=== PATIENT | female | born 1955 | race Caucasian/White ===

== ENCOUNTER 2024-07-30 20:47 | Inpatient (IN) | payer BC, MEDICARE ==
[~2024-07-30] VITALS: Ht 162.6 cm; Wt 83.6 kg
[2024-07-30 21:34] LABS: BASOPHILS % (AUTO) 0.4 % (0-1); EOSINOPHILS # (AUTO) 0.1 X10'3 (0-0.9); HEMATOCRIT 41.2 % (35.0-45.0); LYMPHOCYTES # (AUTO) 1.4 X10'3 (1.1-4.8); MEAN CORPUSCULAR HEMOGLOBIN 31.8 PG (27.0-31.0); MEAN CORPUSCULAR VOLUME 93.6 FL (78-98); MEAN PLATELET VOLUME 7.5 FL (7.4-10.4); MONOCYTES # (AUTO) 0.7 X10'3 (0-0.9); MONOCYTES % (AUTO) 10.7 % (2-12); NEUTROPHILS % (AUTO) 64.9 % (42-75); PLATELET COUNT 233 X10'3 (140-440); RED CELL DISTRIBUTION WIDTH 14.2 % (11.5-14.5); WHITE BLOOD COUNT 6.2 X10'3 (4.5-11.0)
--- NOTE | 2024-07-30 21:36 | NUR ---
MD GRANADO AT BEDSIDE AT THIS TIME
[2024-07-30 21:41] LABS: BILIRUBIN,URINE NEGATIVE (Neg); CLARITY,URINE CLEAR (Clear); COLOR,URINE YELLOW (Yellow); GLUCOSE, URINE NEGATIVE (Neg); KETONES,URINE NEGATIVE (Neg); LEUKOCYTE ESTERASE ,URINE NEGATIVE (Neg); NITRITES, URINE NEGATIVE (Neg); OCCULT BLOOD,URINE TRACE-INTACT (Neg); PROTEIN,URINE NEGATIVE (Neg); UROBILINOGEN,URINE 0.2 E.U/dL (0.2-1.0)
[2024-07-30 21:43] LABS: UA COLLECTION TYPE CLN CATCH MIDSTREAM
[2024-07-30 21:51] LABS: ALANINE AMINOTRANSFERASE 261 U/L (12-78); ALBUMIN 3.5 G/DL (3.4-5.0); ALKALINE PHOSPHATASE 126 IU/L (46-116); ANION GAP 9 (8-16); ASPARTATE AMINO TRANSFERASE 183 U/L (10-37); BILIRUBIN,TOTAL 0.8 MG/DL (0.1-1.0); BLOOD UREA NITROGEN 22 MG/DL (7-18); CALCIUM 8.7 MG/DL (8.5-10.1); CHLORIDE 108 MMOL/L (99-107); CREATININE 1.05 MG/DL (0.40-0.90); GLUCOSE 105 MG/DL (70-104); LIPASE 32 U/L (16-77); SODIUM 142 MMOL/L (135-145); TOTAL CARBON DIOXIDE 24.9 MMOL/L (24-32); TOTAL PROTEIN 7.1 G/DL (6.4-8.2); eCRCL 46 ML/MIN; eGFR 52 ML/MIN
[2024-07-30 21:52] LABS: BACTERIA,URINE FEW /HPF (Neg); MUCUS STRANDS NONE SEEN /LPF (Neg); SQUAMOUS EPITHELIAL CELL,UR FEW /LPF (FEW); WBC,URINE 0-4 /HPF (0-4)
[2024-07-30 22:02] LABS: APTT 26 SECONDS (22-32); PROTHROMBIN TIME 10.3 SECONDS (9.0-12.0)
[2024-07-30] MEDS ORDERED: magnesium sulf-water 2g/50mL 50 ML IV PRN (23:00)
[2024-07-30] MEDS ORDERED: potassium Cl 20 mEq SR tablet PO PRN ×2 (23:00)
[2024-07-30] MEDS ORDERED: potassium Cl 40MEQ/1/2NS 520ml 520 ML IV PRN (23:00)
[2024-07-30] MEDS ORDERED: magnesium hydroxide 30ml (MOM) UD suspension PO PRN (23:00)
[2024-07-30] MEDS ORDERED: mag hydrox/Alum hydrox/simeth 30ml oral suspension PO PRN (23:00)
[2024-07-30] MEDS ORDERED: magnesium Cl slow-release 64mg tablet PO PRN (23:00)
[2024-07-30] MEDS ORDERED: morphine 2 MG/ML inj. syringe IV PRN ×2 (23:00)
[2024-07-30] MEDS ORDERED: acetaminophen 325mg tablet PO PRN (23:00)
[2024-07-30] MEDS ORDERED: magnesium sulf-water 4G/100mL 100 ML IV PRN (23:00)
[2024-07-30 23:32] LABS: MAGNESIUM 2.1 MG/DL (1.5-2.4)
[2024-07-30] MEDS: normal saline 1000ml 1,000 ML IV SCH (23:38)
[2024-07-30 23:51] LABS: HEMOGLOBIN A1C 5.6 % (4.5-6.2)
[2024-07-31] VITALS (22 sets, daily range): BP systolic 112–175; BP diastolic 58–101; PULSE 45–97; RESP 13–22; TEMP 97.3–98.5; O2SAT 91–99
--- NOTE | 2024-07-31 00:35 | NUR ---
Patient in room ED 13. I have received report from Pina DONAHUE in ER and had the opportunity to ask questions and assume patient care.
--- NOTE | 2024-07-31 00:45 | NUR ---
Received patient on the unit. Assumed care.
[2024-07-31] MEDS ORDERED: CARB15DR RIGHTEYE (01:39)
[2024-07-31] MEDS ORDERED: CARB15DR LEFTEYE (01:40)
[2024-07-31] MEDS ORDERED: SODI650T29 PO (01:45)
--- NOTE | 2024-07-31 01:45 | NUR ---
Patient reports that she takes a medication for BP at home but doesn't remember what it is called. She does know it is 50mg in the morning and 50mg in the evening. Addendum: 07/31/24 at 0243 by Laina Luz RN RN Home medications found in chart and med rec completed.
[2024-07-31] MEDS ORDERED: LOSA-415 PO (02:06)
[2024-07-31] MEDS ORDERED: OMEP20CA16 PO (02:09)
--- NOTE | 2024-07-31 03:40 | NUR ---
pastry wrapper: I have reviewed and agree with all interventions, assessments performed and documented by Laina Casey RN
--- NOTE | 2024-07-31 06:08 | NUR ---
Problems reprioritized. Patient report given, questions answered & plan of care reviewed with Montez IVY.
[2024-07-31 06:11] LABS: BASOPHILS % (AUTO) 0.3 % (0-1); EOSINOPHILS # (AUTO) 0.2 X10'3 (0-0.9); EOSINOPHILS % (AUTO) 3.1 % (0-6); HEMOGLOBIN 12.7 g/dl (12.0-16.0); LYMPHOCYTES # (AUTO) 0.8 X10'3 (1.1-4.8); LYMPHOCYTES % (AUTO) 11.3 % (21-51); MEAN CORPUSCULAR HGB CONC 33.3 g/dL (33.0-36.5); MEAN CORPUSCULAR VOLUME 93.1 FL (78-98); MEAN PLATELET VOLUME 7.5 FL (7.4-10.4); MONOCYTES # (AUTO) 0.7 X10'3 (0-0.9); NEUTROPHILS # (AUTO) 5.3 X10'3 (1.8-7.7); NEUTROPHILS % (AUTO) 75.3 % (42-75); PLATELET COUNT 194 X10'3 (140-440); RED BLOOD COUNT 4.08 X10'6 (4.20-5.60); RED CELL DISTRIBUTION WIDTH 14.1 % (11.5-14.5); WHITE BLOOD COUNT 7.1 X10'3 (4.5-11.0)
[2024-07-31 06:24] LABS: ALANINE AMINOTRANSFERASE 191 U/L (12-78); ALBUMIN/GLOBULIN RATIO 0.9 (1.1-1.5); ALKALINE PHOSPHATASE 113 IU/L (46-116); ANION GAP 5 (8-16); ASPARTATE AMINO TRANSFERASE 102 U/L (10-37); BILIRUBIN,TOTAL 0.8 MG/DL (0.1-1.0); BLOOD UREA NITROGEN 18 MG/DL (7-18); BUN/CREATININE RATIO 16.2 (10.0-20.0); CALCIUM 8.6 MG/DL (8.5-10.1); CHLORIDE 112 MMOL/L (99-107); CHOL/HDL RATIO 2.4 (0.00-4.99); CHOLESTEROL 191 MG/DL (0-200); CREATININE 1.11 MG/DL (0.40-0.90); GLUCOSE 104 MG/DL (70-104); HDL CHOLESTEROL 79 MG/DL (35-60); LDL CHOLESTEROL 89 MG/DL (50-100); POTASSIUM 3.9 MMOL/L (3.5-5.1); SODIUM 144 MMOL/L (135-145); TOTAL CARBON DIOXIDE 26.8 MMOL/L (24-32); TOTAL PROTEIN 6.2 G/DL (6.4-8.2); TRIGLYCERIDES 59 MG/DL (20-135); eCRCL 43 ML/MIN; eGFR 49 ML/MIN
[2024-07-31 06:25] LABS: PROTHROMBIN TIME 10.5 SECONDS (9.0-12.0)
[2024-07-31] MEDS: metroNIDAZOLE-Flagyl 500mg/NS 100 ML IV SCH (07:51)
[2024-07-31] MEDS: K and/or MAG REPLACEMENT MC SCH (08:00)
[2024-07-31] MEDS: docusate sod 100mg capsule PO SCH (08:00)
[2024-07-31] MEDS: CefTRIAXone/D5W-Rocephin 1gm 50 ML IV SCH (09:03)
--- NOTE | 2024-07-31 13:41 | NUR ---
MAMMOGRAPHY TECHNICIAN documentation: I have reviewed and agree with all interventions, assessments performed and documented by Ramsey IVY; care plan reviewed/discussed/updated as needed .
[2024-07-31] MEDS ORDERED: morphine 4 MG/ML inj SYRINge IV PRN (15:55)
[2024-07-31] MEDS ORDERED: meperidine/PF 25mg/ml syringe IV PRN ×3 (15:55)
[2024-07-31] MEDS ORDERED: morphine 2 MG/ML inj. syringe IV PRN (15:55)
[2024-07-31] MEDS ORDERED: proCHLORperazine 10 MG/2 ml inj IV PRN (15:55)
[2024-07-31] MEDS: BUPIVAcaine 2.5mg/ml inj 50ml vial (contains preservative) ONE (16:07)
[2024-07-31] MEDS ORDERED: ceFOXitin 2,000 MG/NS 100 ML ADD-VANTAGE bag IV ONE (17:14)
[2024-07-31] MEDS ORDERED: midazolam 1 mg/ML 2ml injection ONE (17:20)
[2024-07-31] MEDS ORDERED: fentaNYL/PF 50MCG/1 ML 2ML syringe ONE (17:20)
[2024-07-31] MEDS ORDERED: propofol inj 20 ML IV ONE (17:25)
[2024-07-31] MEDS ORDERED: rocuronium 10mg/ml inj IV ONE (17:25)
--- NOTE | 2024-07-31 17:43 | NUR ---
First set of 1000 vitals for patient are incorrect. Correct vs have sbp of 134/74
[2024-07-31] MEDS: BUPIVAcaine 2.5mg/ml inj 50ml vial (contains preservative) IJ ONE (17:55)
[2024-07-31] MEDS ORDERED: ondansetron/PF 4mg/2ml inj ONE (18:07)
[2024-07-31] MEDS ORDERED: dexamethasone sod phosphate 4mg/ml inj. ONE (18:07)
[2024-07-31] MEDS ORDERED: neostigmine methylsulfate 1 MG/ML 10ml vial ONE (18:09)
[2024-07-31] MEDS ORDERED: glycopyrrolate 0.2mg/ml inj ONE (18:09)
--- NOTE | 2024-07-31 18:09 | NUR ---
Problems reprioritized. Patient report given, questions answered & plan of care reviewed with BIJU Reyes.
[2024-07-31] MEDS ORDERED: oxyCODONE IR 5mg (immed. release) tablet PO PRN (18:10)
--- NOTE | 2024-07-31 18:23 | NUR ---
Received from OR via BED IN STABLE CONDITION , accompanied by Anesthesiologist and SUPERINTENDENT CUSTODIAN JANITOR report given by SUPERINTENDENT CUSTODIAN JANITOR AND Anesthesiologist. Addendum: 07/31/24 at 1837 by Dionna Rogers RN Amended: Links added.
[2024-07-31] MEDS: ondansetron/PF 4mg/2ml inj IV PRN ×2 (19:07→19:12)
[2024-07-31] MEDS: glycopyrrolate 0.2mg/ml inj ONE (19:29)
[2024-07-31] MEDS: acetaminophen 1,000mg/100ml IV 100 ML IV STA (19:30)
--- NOTE | 2024-07-31 19:43 | NUR ---
PATIENT DISCHARGED FROM PACU IN STABLE CONDITION AFTER REPORT GIVEN TO RN TAKING OVER PATIENTS CARE. PATIENT TRANSFERRED TO ROOM 4009A VIA BED WITH RN. Addendum: 07/31/24 at 1951 by Dionna Rogers RN Amended: Links added.
[2024-07-31] MEDS: ringers solution, lacted 1,000 ML IV SCH (20:16)
[2024-07-31] MEDS: glycopyrrolate 0.2mg/ml inj IV STA (20:21)
[2024-08-01 02:00] VITALS: BP 137/72; PULSE 63; RESP 17; TEMP 98.3; O2SAT 93
--- NOTE | 2024-08-01 02:35 | NUR ---
PRECISION ASSEMBLY INSPECTOR documentation: I have reviewed and agree with all interventions, assessments performed and documented by BIJU Reyes.
[2024-08-01 06:00] VITALS: BP 114/69; PULSE 55; RESP 17; TEMP 97.9; O2SAT 96
--- NOTE | 2024-08-01 06:26 | NUR ---
Problems reprioritized. Patient report given, questions answered & plan of care reviewed with Ramsey IVY.
[2024-08-01 06:58] LABS: BASOPHILS % (AUTO) 0.2 % (0-1); EOSINOPHILS % (AUTO) 0 % (0-6); HEMATOCRIT 37.9 % (35.0-45.0); HEMOGLOBIN 12.7 g/dl (12.0-16.0); LYMPHOCYTES # (AUTO) 0.6 X10'3 (1.1-4.8); LYMPHOCYTES % (AUTO) 10.6 % (21-51); MEAN CORPUSCULAR HEMOGLOBIN 31.5 PG (27.0-31.0); MEAN CORPUSCULAR HGB CONC 33.5 g/dL (33.0-36.5); MEAN CORPUSCULAR VOLUME 93.9 FL (78-98); MEAN PLATELET VOLUME 7.8 FL (7.4-10.4); MONOCYTES # (AUTO) 0.3 X10'3 (0-0.9); MONOCYTES % (AUTO) 4.6 % (2-12); NEUTROPHILS % (AUTO) 84.6 % (42-75); PLATELET COUNT 207 X10'3 (140-440); RED BLOOD COUNT 4.04 X10'6 (4.20-5.60); RED CELL DISTRIBUTION WIDTH 13.7 % (11.5-14.5); WHITE BLOOD COUNT 5.9 X10'3 (4.5-11.0)
[2024-08-01 07:06] LABS: PROTHROMBIN TIME 10.9 SECONDS (9.0-12.0)
[2024-08-01 07:14] LABS: ALANINE AMINOTRANSFERASE 150 U/L (12-78); ALBUMIN 2.8 G/DL (3.4-5.0); ALBUMIN/GLOBULIN RATIO 0.9 (1.1-1.5); ALKALINE PHOSPHATASE 106 IU/L (46-116); ANION GAP 11 (8-16); ASPARTATE AMINO TRANSFERASE 76 U/L (10-37); BILIRUBIN,TOTAL 0.6 MG/DL (0.1-1.0); BLOOD UREA NITROGEN 13 MG/DL (7-18); BUN/CREATININE RATIO 13.5 (10.0-20.0); CALCIUM 8.5 MG/DL (8.5-10.1); CHLORIDE 111 MMOL/L (99-107); CREATININE 0.96 MG/DL (0.40-0.90); GLUCOSE 107 MG/DL (70-104); MAGNESIUM 1.6 MG/DL (1.5-2.4); POTASSIUM 4.2 MMOL/L (3.5-5.1); SODIUM 146 MMOL/L (135-145); TOTAL PROTEIN 5.8 G/DL (6.4-8.2); eCRCL 50 ML/MIN; eGFR 58 ML/MIN
[2024-08-01 08:00] VITALS: RESP 17; O2SAT 96
[2024-08-01] MEDS: polyvinyl alcohol eye drops 15ML BOTTLE EACHEYE SCH (08:33)
--- NOTE | 2024-08-01 10:00 | NUR ---
CEMENT BOAT AND BARGE LOADER documentation: I have reviewed and agree with all interventions, assessments performed and documented by Ramsey IVY; care plan reviewed/discussed/updated as needed.
[2024-08-01] MEDS ORDERED: OXYC-658 PO (12:56)
--- NOTE | 2024-08-01 13:52 | NUR ---
Pt stable for d/c. IV discontinued prior to d/c. Home meds received from pharmacy and given to patient to take home. Patient signed all d/c paperwork and left with all personal belongings. Patient friend present at the time of d/c. Patient wheeled down to lobby with the assist of one staff member and got into private vehicle to go home.
== END 2024-08-01 12:00 | disposition home or self-care (01) | DRG 419 ==
LOC: ER 20:48 → ED HOLD 23:16 → ORTHO 4S 07-31 00:43
PROVIDERS: ADMIT Surgery Surgical Critical Care; ATTEND Internal Medicine
PROC: 0FT44ZZ Resection of Gallbladder, Percutaneous Endoscopic Approach (ICD-10-PCS; principal; 2024-07-31 17:14)
DX: K80.42 Calculus of bile duct with acute cholecystitis without obstruction (principal); I10 Essential (primary) hypertension; K21.9 Gastro-esophageal reflux disease without esophagitis; K66.0 Peritoneal adhesions (postprocedural) (postinfection); Z88.1 Allergy status to other antibiotic agents; Z88.5 Allergy status to narcotic agent; Z88.8 Allergy status to other drugs, medicaments and biological substances
CPT/HCPCS: 36415; 74181; 80053; 80061; 81001; 82948; 83036; 83605; 83690; 83735; 84145; 85025; 85610; 85730; 87040; 87081; 88304; 99291; A4215; A4615; A4618; A7000; G0378; J0131; J0694; J0696; J1100; J2250; J2405; J2704; J2710; J3010; J3490; J7030; J7120